=== PATIENT | female | born 1965 | race Caucasian/White ===

== ENCOUNTER 2017-06-25 09:35 | Emergency (ER) | payer OTHER ==
[2017-06-25 09:46] VITALS: TEMP 98.4
[2017-06-25] MEDS ORDERED: NS 1,000 ML IV ONE (09:55)
--- NOTE | 2017-06-25 10:09 | EDPHY ---
H & P Time Seen by Provider: 06/25/17 09:59 HPI/ROS: CHIEF COMPLAINT: Vaginal bleeding, diarrhea HISTORY OF PRESENT ILLNESS: Patient is a 52-year-old female who presents emergency department with multiple complaints. She states early last week she had some mild vaginal bleeding. She has been postmenopausal in normally gets her menses q.3 months. However, she has had menses for the last 3 months a row. On Sunday her bleeding increased. She is now using 1 tampon every 1-2 hours. She has also developed nonbloody diarrhea. Her stool is not black. She has mild diffuse abdominal bloating and cramping. No fevers or chills. No dysuria or frequency. Mild dizziness. No lightheadedness. No chest pain or shortness of breath. No nausea or vomiting. REVIEW OF SYSTEMS: My complete review of systems is negative except as mentioned in the HPI. Past Medical/Surgical History: Includes anxiety, depression, obstructive sleep apnea Past surgical history: Eye surgery Social history: The patient is not smoke Family history: Diabetes and coronary artery disease Smoking Status: Never smoked Physical Exam: 140/92, 97, 20, 36.9, 98% on room air GENERAL: Well-appearing, in no acute distress, alert. HEENT: Eyes normal to inspection, normal pharynx, no signs of dehydration. NECK: No thyromegaly, no lymphadenopathy, supple. RESPIRATORY: Clear to auscultation bilaterally, no rales, rhonchi or wheezing. CVS: Regular rate and rhythm, no rubs, murmurs, or gallops. ABDOMEN: Soft, nontender, nondistended, no organomegaly. Benign. BACK: Normal to inspection, no CVA tenderness. SKIN: Normal color, no rash, warm, dry. No pallor. EXTREMITIES: No pedal edema, no joint swelling. NEURO/PSYCH: Alert and oriented, normal mood and affect, normal motor sensory exam. Constitutional: Initial Vital Signs Temperature (C) 36.9 C 06/25/17 09:43 Heart Rate 97 06/25/17 09:43 Respiratory Rate 20 06/25/17 09:43 Blood Pressure 140/92 H 06/25/17 09:43 O2 Sat (%) 98 06/25/17 09:43 O2 Delivery Mode Room Air Allergies/Adverse Reactions: No Known Allergies Allergy (Verified 06/25/17 09:47) Home Medications: Medication Instructions Recorded Cymbalta 06/25/17 Herbals/Supplements -Info Only 06/25/17 Wellbutrin Xl 06/25/17 medroxyPROGESTERone [Provera 10 mg 10 mg PO DAILY 10 Days tab 06/25/17 (*)] Medical Decision Making - Diagnostics Imaging Results: Imaging Impressions Pelvic/Renal Ultrasound 06/25/17 10:06 Impression: Cyst versus trace free fluid in the left endometrium, which could be related to a small polyp or cystic change in the endometrium. Consider direct visualization, short term follow-up ultrasound, or hysterosonography. Findings discussed with Dr. Janie Reeves on June 25, 2017 at 1128 hours. ED Course/Re-evaluation: In the emergency department I discussed possible etiologies with the patient. I answered all her questions. IV was placed. Laboratory studies and ultrasound were ordered. With the nurse present I performed gynecologic exam. FEMALE : Patient has a normal external pelvic exam. No vaginal lesions or discharge. Speculum exam: Slight bloody discharge from cervix. No lesions. Bimanual exam: Patient has palpable mass the base of her uterus. Mild tenderness palpation. Normal ovaries bilaterally. I discussed the findings with the patient. I answered all her questions. 10 20: Ultrasound is in the emergency department evaluate the patient. CBC was normal. No anemia. Coags are normal. Ultrasound: Please refer the dictated report by Dr. Chan. Patient has a cyst versus trace free fluid in the left endometrium. There is a small polyp her cystic change in the endometrium. Ovaries appear normal. I discussed the result with the patient. I answered all her questions. On recheck she was lying comfortably in the bed. She did not feel lightheaded or dizzy. Her abdomen was benign. Discussed the case with Dr. Taylor from mri technologist. She recommended the patient be started on Provera 10 mg twice daily. She will see your patient in office. Patient should call to make a follow-up appointment. I discussed the plan with the patient. She feels comfortable. She is given warnings prior to leaving. She will return with worsening symptoms. Differential Diagnosis: My differential includes but is not limited to dysfunctional uterine bleeding, , mass, malignancy, colitis, diverticulitis, infectious disease, cyst - Data Points Laboratory Results: Laboratory Results 06/25/17 10:00 06/25/17 10:00 06/25/17 06/25/17 06/25/17 11:10 10:00 10:00 WBC RBC Hgb Hct MCV MCH MCHC RDW Plt Count MPV Neut % (Auto) Lymph % (Auto) [place] % (Auto) Eos % (Auto) Baso % (Auto) Nucleat RBC Rel Count Absolute Neuts (auto) Absolute Lymphs (auto) Absolute Monos (auto) Absolute Eos (auto) Absolute Basos (auto) Absolute Nucleated RBC Immature Gran % Immature Gran # PT INR APTT Sodium 139 mEq/L mEq/L (134-144) Potassium 4.3 mEq/L mEq/L (3.5-5.2) Chloride 107 mEq/L mEq/L (97-110) Carbon Dioxide 20 mEq/l L mEq/l (22-31) Anion Gap 12 mEq/L mEq/L (8-16) BUN 16 mg/dL mg/dL (7-23) Creatinine 0.8 mg/dL mg/dL (0.6-1.0) Estimated GFR > 60 Glucose 95 mg/dL mg/dL (70-100) Calcium 8.9 mg/dL mg/dL (8.5-10.4) Beta HCG, Qual NEGATIVE Urine Color YELLOW Urine Appearance CLOUDY Urine pH 7.0 (5.0-7.5) Ur Specific [place] 1.010 (1.002-1.030) Urine Protein TRACE H (NEGATIVE) Urine Ketones NEGATIVE (NEGATIVE) Urine Blood 3+ H (NEGATIVE) Urine Nitrate NEGATIVE (NEGATIVE) Urine Bilirubin NEGATIVE (NEGATIVE) Urine Urobilinogen 0.2 EU EU (0.2-1.0) Ur Leukocyte Esterase NEGATIVE (NEGATIVE) Urine RBC 50-182 /hpf H /hpf (0-3) Urine WBC 5-10 /hpf H /hpf (0-3) Ur Epithelial Cells 3+ /lpf H /lpf (NONE-1+) Urine Bacteria TRACE /hpf H /hpf (NONE SEEN) Urine Mucus 3+ /lpf H /lpf (NONE-1+) Urine Glucose NEGATIVE (NEGATIVE) 06/25/17 06/25/17 10:00 10:00 WBC 6.72 10^3/uL 10^3/uL (3.80-9.50) RBC 4.98 10^6/uL 10^6/uL (4.18-5.33) Hgb 14.6 g/dL g/dL (12.6-16.3) Hct 42.5 % % (38.0-47.0) MCV 85.3 fL fL (81.5-99.8) MCH 29.3 pg pg (27.9-34.1) MCHC 34.4 g/dL g/dL (32.4-36.7) RDW 12.8 % % (11.5-15.2) Plt Count 317 10^3/uL 10^3/uL (150-400) MPV 10.4 fL fL (8.7-11.7) Neut % (Auto) 71.1 % % (39.3-74.2) Lymph % (Auto) 19.5 % % (15.0-45.0) [place] % (Auto) 6.4 % % (4.5-13.0) Eos % (Auto) 2.1 % % (0.6-7.6) Baso % (Auto) 0.6 % % (0.3-1.7) Nucleat RBC Rel Count 0.0 % % (0.0-0.2) Absolute Neuts (auto) 4.78 10^3/uL 10^3/uL (1.70-6.50) Absolute Lymphs (auto) 1.31 10^3/uL 10^3/uL (1.00-3.00) Absolute Monos (auto) 0.43 10^3/uL 10^3/uL (0.30-0.80) Absolute Eos (auto) 0.14 10^3/uL 10^3/uL (0.03-0.40) Absolute Basos (auto) 0.04 10^3/uL 10^3/uL (0.02-0.10) Absolute Nucleated RBC 0.00 10^3/uL 10^3/uL (0-0.01) Immature Gran % 0.3 % % (0.0-1.1) Immature Gran # 0.02 10^3/uL 10^3/uL (0.00-0.10) PT 12.4 SEC SEC (12.0-15.0) INR 0.95 (0.83-1.16) APTT 29.7 SEC SEC (23.0-38.0) Sodium Potassium Chloride Carbon Dioxide Anion Gap BUN Creatinine Estimated GFR Glucose Calcium Beta HCG, Qual Urine Color Urine Appearance Urine pH Ur Specific [place] Urine Protein Urine Ketones Urine Blood Urine Nitrate Urine Bilirubin Urine Urobilinogen Ur Leukocyte Esterase Urine RBC Urine WBC Ur Epithelial Cells Urine Bacteria Urine Mucus Urine Glucose Medications Given: Discontinued Medications Sodium Chloride (Ns) 1,000 mls @ 0 mls/hr IV EDNOW ONE; Wide Open PRN Reason: Protocol Stop: 06/25/17 09:56 Last Admin: 06/25/17 10:08 Dose: 1,000 mls Departure - Departure Disposition: Home, Routine, Self-Care Clinical Impression: Vaginal bleeding, Abdominal cramping Condition: Good Instructions: Dysfunctional Uterine Bleeding (ED) Additional Instructions: Return with increasing bleeding, lightheadedness, dizziness, or any other concerns. Take her medication as directed. Call Dr. Taylor's office to make an appointment. Referrals: Kathryn Kaur MD [Primary Care Provider] - 1-2 days without fail Isabelle Taylor DO [Doctor of Osteopathy] - As per Instructions Prescriptions: medroxyPROGESTERone [Provera 10 mg (*)] 10 mg PO DAILY 10 Days tab
[2017-06-25 10:11] LABS: % IMMATURE GRANULYOCYTES 0.3 % (0.0-1.1); ABSOLUTE IMMATURE GRANULOCYTES 0.02 10^3/uL (0.00-0.10); ADD DIFF? NO; ADD MORPH? NO; ADD SCAN? NO; ATYPICAL LYMPHOCYTE FLAG 10 (0-99); FRAGMENT RBC FLAG 0 (0-99); HEMATOCRIT 42.5 % (38.0-47.0); HEMOGLOBIN 14.6 g/dL (12.6-16.3); LEFT SHIFT FLG 0 (0-99); LIPEMIA HEMOLYSIS FLAG 90 (0-99); MEAN CELL HEMOGLOBIN 29.3 pg (27.9-34.1); MEAN CELL HEMOGLOBIN CONCENTR. 34.4 g/dL (32.4-36.7); MEAN CELL VOLUME 85.3 fL (81.5-99.8); MEAN PLATELET VOLUME 10.4 fL (8.7-11.7); PLATELET CLUMPS FLAG 0 (0-99); PLATELET COUNT 317 10^3/uL (150-400); RED BLOOD CELL COUNT 4.98 10^6/uL (4.18-5.33); RED CELL DISTRIBUTION WIDTH 12.8 % (11.5-15.2)
[2017-06-25 10:22] LABS: INR 0.95 (0.83-1.16); PROTIME(PATIENT) 12.4 SEC (12.0-15.0)
[2017-06-25 10:23] LABS: APTT 29.7 SEC (23.0-38.0)
[2017-06-25 10:25] LABS: ANION GAP 12 mEq/L (8-16); CALCIUM 8.9 mg/dL (8.5-10.4); CARBON DIOXIDE 20 mEq/l (22-31); CHLORIDE 107 mEq/L (97-110); CREATININE 0.8 mg/dL (0.6-1.0); GLOMERULAR FILTRATION RATE > 60; GLUCOSE 95 mg/dL (70-100); POTASSIUM 4.3 mEq/L (3.5-5.2); SODIUM 139 mEq/L (134-144)
[2017-06-25 11:07] VITALS: RESP 16; O2SAT 95
[2017-06-25 11:13] LABS: COLOR YELLOW; LEUKOCYTE ESTERASE,URINE NEGATIVE (NEGATIVE); NITRITE,URINE NEGATIVE (NEGATIVE)
[2017-06-25 11:27] LABS: BACTERIA TRACE /hpf (NONE SEEN); MUCUS 3+ /lpf (NONE-1+); RBC,URINE 50-182 /hpf (0-3)
[2017-06-25 12:53] VITALS: BP 152/89; PULSE 71
== END 2017-06-25 12:58 | disposition home or self-care (01) ==
LOC: CED 09:35
DX: N93.9 Abnormal uterine and vaginal bleeding, unspecified (principal); E86.9 Volume depletion, unspecified; R10.9 Unspecified abdominal pain
CPT/HCPCS: 76856-PO; 80048-PO; 81003-PO; 81015-PO; 84703-PO; 85025-PO; 85610-PO; 85730-PO

== ENCOUNTER → 2017-08-06 | Outpatient (CLI) | payer OTHER | LOC: CIMAGING 09:45 | PROVIDERS: ATTEND Family Medicine | DX: Z12.31 Encounter for screening mammogram for malignant neoplasm of breast (principal) | CPT/HCPCS: G0202 ==

== ENCOUNTER → 2017-08-10 | Day surgery (SDC) | payer OTHER ==
--- NOTE | 2017-08-09 08:25 | PDGENHP ---
History and Physical - Chief Complaint heavy vaginal bleeding - History of Present Illness 52-year-old A2 perimenopausal white female who has had irregular, painful heavy menstrual bleeding for the past 3 months. She had a pelvic ultrasound performed on 06/25/2017, at [facility] in [place], which showed a 7 x 7.6 x 5.9 cm uterus, 7 mm endometrial lining thickness, a 6 mm hypoechoic structure within the left fundal endometrium. No fibroids identified. Right and left ovaries measured within normal size and no adnexal masses identified. Normal blood flow noted to both ovaries. Impression from pelvic (transvaginal and transabdominal) imaging suggests trace free fluid in left endometrial cavity which could be related to a small polyp or cystic change in endometrium. Patient 's most recent pap smear (performed 07/19/17) was negative for intraepithelial lesion or malignancy. She is not currently taking medication for irregular bleeding or associated pelvic pain. History Information - Allergies/Home Medication List Allergies/Adverse Reactions: No Known Allergies Allergy (Verified 06/25/17 09:47) Home Medications: Cymbalta DAILY06 06/25/17 [Last Taken Unknown] Herbals/Supplements -Info Only DAILY 06/25/17 [Last Taken Unknown] Wellbutrin Xl DAILY06 06/25/17 [Last Taken Unknown] I have personally reviewed and updated: family history, medical history, social history, surgical history - Past Medical History Additional medical history: Anxiety, Depression, h/o detached retina - Surgical History Additional surgical history: repair of detached retina (2002) - Family History Positive for: non-pertinent - Social History Smoking Status: Never smoked Alcohol Use: None Drug Use: None Review of Systems Review of Systems: Constitutional: Reports: no symptoms EENMT: Reports: no symptoms Cardiac: Reports: no symptoms Respiratory: Reports: no symptoms Gastrointestinal: Reports: abdominal pain Genitourinary: Reports: pain, other (see HPI comments) Muscolosketal: Reports: no symptoms Skin: Reports: no symptoms Neurological: Reports: anxiety, other (Anxiety and depression treated with Cymbalta and Wellbutrin) Hematologic/Lymphatic: Reports: no symptoms Immunologic/Allergy: Reports: no symptoms Physical Exam Physical Exam: Physical Exam performed @ [facility] on 07/19/2017, including well- woman and age-appropriate screening. Constitutional: no apparent distress Eyes: PERRL Ears, Nose, Mouth, Throat: moist mucous membranes Cardiovascular: regular rate and rhythym, no murmur, rub, or gallop Respiratory: no respiratory distress, no rales or rhonchi, clear to auscultation Gastrointestinal: normoactive bowel sounds, soft, non-tender abdomen, no palpable masses Genitourinary: other (Speculum exam: Normal vulvar skin, vaginal mucosa and cervix, pap sample obtained; Bimanual exam: small, mobile, retroverted uterus) Skin: warm, normal color Musculoskeletal: full muscle strength, no muscle tenderness Neurologic: AAOx3, sensation intact bilaterally Psychiatric: interacting appropriately, not anxious Lab Data & Imaging Review Imaging Review: US images and reports (from 06/25/2017) reviewed; see comments in HPI. Assessment & Plan Assessment: 52-year-old white female with painful, heavy irregular menses and suspected endometrial polyp. Plan: Hysteroscopy, D&C, possible polypectomy scheduled for 08/10/17 @ 715AM @ [facility] OR.
[~2017-08-10] MED LIST: ACETAMINOPHEN 500 MG TAB PO PRN; ALBUTEROL 3 ML DEYVIAL IH PRN; DEXAMETHASONE 4 MG/ML VIAL IVP PRN; DEXAMETHASONE 4 MG/ML VIAL ONE; HYDROCODONE/APAP 5/325 TAB PO PRN; IBUPROFEN 200 MG TAB PO PRN; LABETALOL HCL 50 MG/10 ML SYR IVP PRN; LIDOCAINE 1% 2 ML INJ ID PRN; LIDOCAINE 2% 100 MG/5 ML SYR ONE; LIDOCAINE 2% JELLY 5 ML TUBE ONE; LR 1,000 ML IV ONE; LR 500 ML IV PRN; MEPERIDINE 25 MG/ML SYR IVP PRN; METOCLOPRAMIDE 10 MG/2 ML VIAL IVP PRN; MIDAZOLAM 2 MG/2 ML VIAL IVP ONE; NALOXONE HCL 0.4 MG/ML INJ IVP PRN; ONDANSETRON 4 MG/2 ML VIAL IVP PRN; ONDANSETRON 4 MG/2 ML VIAL ONE; OXYCODONE/APAP 5/325 TAB PO PRN; PROMETHAZINE HCL 25 MG/ML INJ IVP PRN; PROPOFOL/EMULSION 500 MG/50 ML BOTTLE IV ONE; SILVER NITRATE APPLICATOR 1 APPL TP ONE; ceFAZolin 2 GM/SWFI 2 GM/20 ML SYR IVP ONE; fentaNYL 100 MCG/2 ML INJ IVP PRN; fentaNYL 100 MCG/2 ML INJ ONE
[2017-08-10 06:26] VITALS: PULSE 77
--- NOTE | 2017-08-10 07:08 | PDANEPAE ---
ANE History of Present Illness hysteroscopy for menorrhagia ANE Past Medical History - Cardiovascular History Hx Hypertension: No Hx Arrhythmias: No Hx Chest Pain: No Hx Coronary Artery / Peripheral Vascular Disease: No Hx CHF / Valvular Disease: No Hx Palpitations: No - Pulmonary History Hx COPD: No Hx Asthma/Reactive Airway Disease: No Hx Recent Upper Respiratory Infection: No Hx Oxygen in Use at Home: No Hx Sleep Apnea: Yes Sleep Apnea Screening Result - Last Documented: Positive Pulmonary History Comment: NEW DX DORENE USES C-PAP INSTRUCTED TO BRING DOS - Neurologic History Hx Cerebrovascular Accident: No Hx Seizures: No Hx Dementia: No - Endocrine History Hx Diabetes: No - Renal History Hx Renal Disorders: No - Liver History Hx Hepatic Disorders: No - Neurological & Psychiatric Hx Hx Neurological and Psychiatric Disorders: Yes Neurological / Psychiatric History Comment: DEPRESSION - Cancer History Hx Cancer: No - Congenital Disorder History Hx Congenital Disorders: No - GI History Hx Gastrointestinal Disorders: No - Other Health History Other Health History: HEAVY BLEEDING. POLYP - Chronic Pain History Chronic Pain: No - Surgical History Prior Surgeries: LT RETINAL SURG 2010 ANE Review of Systems Review of Systems: - Exercise capacity METS (RN): 4 METS ANE Patient History - Allergies Allergies/Adverse Reactions: No Known Allergies Allergy (Verified 06/25/17 09:47) - Home Medications Home medications: home medication list seen and reviewed Home Medications: Cymbalta DAILY06 06/25/17 [Last Taken 08/10/17 04:45] Herbals/Supplements -Info Only DAILY 06/25/17 [Last Taken 08/03/17] Wellbutrin Xl DAILY06 06/25/17 [Last Taken 08/10/17 04:45] - NPO status NPO Status: no food or drink >8 hours NPO Since - Liquids (Date): 08/10/17 NPO Since - Liquids (Time): 04:45 NPO Since - Solids (Date): 08/09/17 NPO Since - Solids (Time): 19:00 - Anes Hx Anes Hx: slow to awaken from anesthesia - Smoking Hx Smoking Status: Never smoked - Alcohol Use Alcohol Use: None - Family Anes Hx Family Anes Hx: none ANE Labs/Vital Signs - Labs - CBC WBC: reviewed and okay - Vital Signs Blood Pressure: 113/77 Heart Rate: 77 Respiratory Rate: 16 O2 Sat (%): 90 Height: 172.72 cm Weight: 90.718 kg ANE Physical Exam - Airway Neck exam: FROM Mallampati Score: Class 2 Mouth exam: normal dental/mouth exam - Pulmonary Pulmonary: no respiratory distress - Cardiovascular Cardiovascular: regular rate and rhythym - ASA Status ASA Status: II ANE Anesthesia Plan Anesthesia Plan: GA w LMA (R/B/A explained and agrees to proceed)
--- NOTE | 2017-08-10 07:15 | PDHPUP ---
History & Physical Update H&P update statement: This history and physical update is based on an assessment of the patient which was completed after admission or registration (within 24 hours), but prior to the surgery/procedure. H&P update: H&P reviewed & patient examined, no change in patient's condition since H&P completed
--- NOTE | 2017-08-10 08:13 | POSTOPPROG ---
Post Op Note Date of Operation: 08/10/17 Surgeon: Rod Nino Psychiatric Orderly: OR Staff Anesthesiologist: Jeremie Pina MD Anesthesia: GET(General Endotracheal) Pre-op Diagnosis: Perimenopausal bleeding Post-op Diagnosis: Same Indication: 52 yo female with perimenopausal bleeding and thickened endometrial lining. Procedure: Diagnostic hysteroscopy, D&C Findings: Normal endometrial cavity, no thickened lining Inf/Abcess present in the surg proc area at time of surgery?: No Depth: Superfical (Skin SQ) EBL: Minimal Total fluids administered: 550 mL Complications: None Specimen(s): Endometrial curettings
--- NOTE | 2017-08-10 08:34 | SUROPNOTE ---
[facility] Operative Report - Surgery OPERATIVE REPORT DATE OF OPERATION: 08/10/17 SURGEON: Davis Nino MD RESPIRATORY CARE ASSISTANT: OR Staff ANESTHESIA: General Endotracheal ANESTHESIOLOGIST: Jeremie Pina MD PREOPERATIVE DIAGNOSES: 1. Perimenopausal bleeding 2. Thickened endometrial lining 3. Suspected endometrial polyp POSTOPERATIVE DIAGNOSES: 1. Normal endometrial cavity 2. Thin endometrial lining PROCEDURE PERFORMED: 1. Diagnostic hysteroscopy 2. Dilation and curettage of endometrial cavity FINDINGS: Small, mobile anteverted uterus, normal endocervical canal and normal endometrial cavity, tubal ostia seen x 2. Five pictures taken during hysteroscopic survey of endocervical canal and endometrial cavity display these finding. SPECIMENS: Endometrial curettings. EBL: 25 mL Fluid deficit (Hysteroscopy): 0 mL IV Fluids administered during procedure: 550 mL INDICATIONS: 52-year-old A2 perimenopausal white female who has had irregular, painful heavy menstrual bleeding for the past 3 months. She had a pelvic ultrasound performed on 06/25/2017, at [facility] in [place], which showed a 7 x 7.6 x 5.9 cm uterus, 7 mm endometrial lining thickness, a 6 mm hypoechoic structure within the left fundal endometrium. No fibroids identified. Right and left ovaries measured within normal size and no adnexal masses identified. Normal blood flow noted to both ovaries. Impression from pelvic (transvaginal and transabdominal) imaging suggests trace free fluid in left endometrial cavity which could be related to a small polyp or cystic change in endometrium. Patient's most recent pap smear (performed 07/19/17) was negative for intraepithelial lesion or malignancy. She is not currently taking medication for irregular bleeding or associated pelvic pain. DESCRIPTION OF PROCEDURE: After appropriate consent was obtained patient was taken to OR. General endotracheal anesthesia was induced and found to be adequate. 2 grams of Ancef given IV. Patient was placed in dorsal lithotomy position then prepped and draped according to usual sterile fashion. Time out was performed. Red rubber catheter was used to empty bladder. An bimanual exam was performed, with small, mobile anteverted uterus palpated. A weighted speculum was placed in vagina and single-tooth tenaculum was used to grasp the posterior lip of the cervix for traction during procedure. Small diameter cervical dilators were used to dilate cervix so that uterine sound could be passed through cervix. Fundus gently sounded to 8 cm. Additional dilators were used (to approximately 4 to 5-mm so that hysteroscope could be introduced through cervical canal. With normal saline irrigation running, diagnostic hysteroscope was passed gently through cervical canal (see pictures) and then into endometrial cavity. The uterine cavity was inspected in a systematic fashion beginning with the right tubal ostia, the the fundal portion of the cavity and then to the left tubal ostia (see pictures). The floor and the ceiling of the cavity were also examined. There were no obvious polyps or concerning lesions/areas on the endometrial surface. Endometrium appeared light and thin (see pictures). Hysteroscope was removed. Small curette was passed through cervix and used to take samples from the endometrial cavity. Gently passes made in a clockwise 360-degree fashion, attempting to sample the entire lining, were made until a gritty texture was palpated through the instrument. A small sample of endometrial tissue was obtained and was sent to pathology. Instruments were removed from endometrial cavity, cervix (tenaculum) and vagina (speculum). A sponge stick was used to tamponade a small amount of bleeding from the tenaculum sites on the cervix. At the end of procedure sponge, lap and instrument count was correct x 2. Patient tolerated procedure well and she was taken to PACU awake and in stable condition.
[2017-08-10 08:51] VITALS: TEMP 97.3
[2017-08-10 09:05] VITALS: BP 122/71; RESP 15; O2SAT 97
--- NOTE | 2017-08-10 10:25 | POSTANESTH ---
Post Anesthetic Evaluation Cardiovascular Status: Normal, Stable Level of Consciousness/Mental Status: Can Participate in Eval Pain Control: Adequate, Prn Tx Ordered Nausea/Vomiting Control: Adequate, Prn Tx Ordered Complications Possibly Related to Anesthesia: None Noted
== END | disposition home or self-care (01) ==
LOC: FSGY 05:34
PROVIDERS: ATTEND Obstetrics & Gynecology Gynecology
DX: N92.4 Excessive bleeding in the premenopausal period (principal)
CPT/HCPCS: J0690; J1100; J2001; J2250; J2405; J2704; J3010

== ENCOUNTER → 2018-09-10 | Outpatient (CLI) | payer OTHER | LOC: CIMAGING 08:46 | PROVIDERS: ATTEND Family Medicine | DX: Z12.31 Encounter for screening mammogram for malignant neoplasm of breast (principal) ==

== ENCOUNTER 2019-03-10 20:30 | Emergency (ER) | payer OTHER | END 2019-03-10 23:29 | disposition home or self-care (01) ==